=== PATIENT | female | born 1990 | race Hispanic/Latino ===

== ENCOUNTER 2020-05-03 09:30 | Outpatient (CLI) | payer OTHER | END 2020-05-03 09:31 | disposition home or self-care (01) | LOC: DTY/OP 09:30 | PROVIDERS: ATTEND Surgery | DX: E66.01 Morbid (severe) obesity due to excess calories (principal) | CPT/HCPCS: 97802 ==

== ENCOUNTER 2020-05-30 16:16 | Outpatient (CLI) | payer OTHER | END 2020-05-30 16:17 | disposition home or self-care (01) | LOC: DTY/OP 16:16 | PROVIDERS: ATTEND Surgery | DX: E66.01 Morbid (severe) obesity due to excess calories (principal) | CPT/HCPCS: 97802 ==